=== PATIENT | male | born 1940 | race African-American/Black ===

== ENCOUNTER 2022-06-10 15:00 | Emergency (ER) | payer MEDICARE, OTHER ==
[~2022-06-10] VITALS: Ht 177.8 cm; Wt 68.0 kg
[2022-06-10 15:13] VITALS: BP 173/91
[2022-06-10] MEDS ORDERED: NACL 0.9% 2,000 ML IV ONE (15:20)
[2022-06-10] MEDS ORDERED: ACETAMINOPHEN 650 MG SUPP RC ONE (15:30)
[2022-06-10] MEDS ORDERED: PIPERACILLIN/TAZOBACTAM 3.375 GM in DEXTROSE 5% 50 ML IV ONE (15:30)
[2022-06-10] MEDS ORDERED: VANCOMYCIN 1,000 MG in DEXTROSE 5% 250 ML IV ONE (15:30)
--- NOTE | 2022-06-10 15:45 | NUR ---
# 16 FR Munoz catheter with 10 ml utilizing sterile technique. Immediate return of 200 ml CLEAR STRAW COLORED urine noted. Bedside drainage bag placed below level of bladder. Urine sample collected and sent to lab. Pt tolerated procedure WELL.
[2022-06-10 15:46] LABS: BASOPHILS % (AUTO) 0.1 % (0.0-2.0); EOSINOPHILS % (AUTO) 0.4 % (0.0-4.0); HEMATOCRIT 34.6 % (36-52); HEMOGLOBIN 11.8 g/dL (12.0-18.0); LYMPHOCYTES # (AUTO) 0.5 K/uL (2.0-11.5); LYMPHOCYTES % (AUTO) 4.2 % (20.5-51.1); MEAN CORPUSCULAR HEMOGLOBIN 33 pg (27-31); MEAN CORPUSCULAR HGB CONC 34 g/dL (33-37); MEAN CORPUSCULAR VOLUME 94.9 fL (80-94); MONOCYTES # (AUTO) 0.5 K/uL (0.8-1.0); MONOCYTES % (AUTO) 4.6 % (1.7-9.3); NEUTROPHILS # (AUTO) 10.1 K/uL (1.8-7.7); NEUTROPHILS % (AUTO) 90.7 % (42.2-75.2); PLATELET COUNT (AUTO) 231 K/uL (140-450); RED BLOOD CELL COUNT(AUTO) 3.64 MIL/uL (4.20-6.10); RED CELL DISTRIBUTION WIDTH 14.2 % (11.6-13.7); WHITE BLOOD COUNT (AUTO) 11.1 K/uL (4.8-10.8)
[2022-06-10] MEDS ORDERED: PIPERACILLIN/TAZOBACTAM 3.375 GM VIAL IV ONE (15:57)
[2022-06-10] MEDS ORDERED: VANCOMYCIN 1,000 MG VIAL ONE (15:58)
[2022-06-10 16:12] LABS: LIPASE 90 U/L (73-393)
[2022-06-10 16:32] LABS: ASPARTATE AMINOTRANSFERASE 25 U/L (15-37); CREATININE 0.8 mg/dL (0.6-1.3); GLUCOSE 156 mg/dL (74-106); TOTAL BILIRUBIN 0.3 mg/dL (0.0-1.0); UREA NITROGEN, BLOOD 10 mg/dL (7-18)
--- NOTE | 2022-06-10 16:37 | NUR ---
ROBERT FROM HOME C/O ALOC, PER PT NORMALLY A/OX4, PT NOW A/OX1 TO NAME, PT ON BELLE CATHETER, NOTED SEDIMENTS ON THE ENTIRETY OF THE CATHETER, PT WARM TO TOUCH, VERBALLY RESPONSIVE NKA PMH: DM, HTN
[2022-06-10 16:58] LABS: ANION GAP 11.2 (8-16); CHLORIDE 91 mmol/L (98-107); POTASSIUM 4.2 mmol/L (3.5-5.1); SODIUM SERUM 125 mmol/L (136-145)
[2022-06-10 17:58] LABS: APPEARANCE,URINE CLEAR (CLEAR); BILIRUBIN,URINE NEGATIVE (NEGATIVE); BLOOD, URINE 3+ (NEGATIVE); COLOR,URINE YELLOW (YELLOW); LEUKOCYTE ESTERASE ,URINE 2+ (NEGATIVE); NITRITE, URINE NEGATIVE (NEGATIVE); UGLUCOSE TRACE (NEGATIVE)
[2022-06-10 18:12] LABS: BARBITURATE, URINE NEGATIVE ng/ml (NEG <=200); BENZODIAZEPINE, URINE NEGATIVE ng/mL (NEG <=200); CANNABINOID, URINE NEGATIVE ng/mL (NEG <=50); COCAINE, URINE NEGATIVE ng/mL (NEG <=300); OPIATE, URINE POSITIVE ng/mL (NEG <=2000); PHENCYCLIDINE SCREEN,URINE NEGATIVE ng/mL (NEG <=25)
[2022-06-10 18:43] LABS: RBC,URINE 20-50 /HPF (0-5); TRICHOMONAS,URINE None Seen /HPF (None Seen); WBC,URINE 16-25 (MOD) /HPF (0-5); YEAST,URINE None Seen /HPF (None Seen)
--- NOTE | 2022-06-10 18:46 | NUR ---
SPOKE TO JESSE ABOUT TRANSFER TO [facility] AND PT CONDITION
[2022-06-10] MEDS ORDERED: ACET-9525 PO (18:50)
[2022-06-10] MEDS ORDERED: GABA-636 PO (18:50)
[2022-06-10] MEDS ORDERED: ONDA4TAB12 PO (18:50)
[2022-06-10] MEDS ORDERED: LISI10TA30 PO (18:50)
[2022-06-10] MEDS ORDERED: FINA5TAB5 PO (18:50)
[2022-06-10] MEDS ORDERED: LEVO0.0712 PO (18:50)
[2022-06-10] MEDS ORDERED: SIMV-30 PO (18:50)
[2022-06-10] MEDS ORDERED: TRIF10TA1 PO (18:50)
[2022-06-10] MEDS ORDERED: METF-352 PO (18:50)
[2022-06-10] MEDS ORDERED: FAMO20TA13 PO (18:50)
[2022-06-10] MEDS ORDERED: RAME8TAB26 PO (18:50)
--- NOTE | 2022-06-10 19:10 | NUR ---
REPORT TO TREE MATTHEW, TRANSFER OF CARE AT THIS TIME
--- NOTE | 2022-06-10 19:40 | NUR ---
Patient is A/Ox1, confused, resting comfortably in bed, chest rise and fall symmetrical, no s/s of distress. Addendum: 06/11/22 at 0213 by [id number] Patient is A/Ox1, confused, resting comfortably in bed, chest rise and fall symmetrical, no s/s of distress, patient on monitor.
--- NOTE | 2022-06-10 19:50 | NUR ---
Patient turned with pillow support to left side.
--- NOTE | 2022-06-10 21:48 | NUR ---
Patient turned with pillow support to right side.
--- NOTE | 2022-06-10 21:50 | NUR ---
Patient voided 500 mL into pollard bag. Addendum: 06/11/22 at 0213 by [id number] Patient is A/Ox1, confused, resting comfortably in bed, chest rise and fall symmetrical, no s/s of distress, patient on monitor.
--- NOTE | 2022-06-10 21:51 | NUR ---
Patient is A/Ox1, confused, resting comfortably in bed, chest rise and fall symmetrical, no s/s of distress. Addendum: 06/11/22 at 0213 by [email or web address] Patient is A/Ox1, confused, resting comfortably in bed, chest rise and fall symmetrical, no s/s of distress, patient on monitor.
--- NOTE | 2022-06-10 22:30 | NUR ---
Patient is A/Ox1, confused, resting comfortably in bed, chest rise and fall symmetrical, no s/s of distress. Addendum: 06/11/22 at 0213 by [id number] Patient is A/Ox1, confused, resting comfortably in bed, chest rise and fall symmetrical, no s/s of distress, patient on monitor.
--- NOTE | 2022-06-10 22:35 | NUR ---
Patient turned with pillow support to left side.
--- NOTE | 2022-06-10 23:10 | NUR ---
Patient turned with pillow support to right side.
--- NOTE | 2022-06-10 23:11 | NUR ---
Patient is A/Ox1, confused, resting comfortably in bed, chest rise and fall symmetrical, no s/s of distress. Addendum: 06/11/22 at 0213 by [id number] Patient is A/Ox1, confused, resting comfortably in bed, chest rise and fall symmetrical, no s/s of distress, patient on monitor.
--- NOTE | 2022-06-11 00:16 | NUR ---
Patient turned with pillow support to left side.
--- NOTE | 2022-06-11 01:10 | NUR ---
Patient is A/Ox1, confused, resting comfortably in bed, chest rise and fall symmetrical, no s/s of distress. Addendum: 06/11/22 at 0213 by [id number] Patient is A/Ox1, confused, resting comfortably in bed, chest rise and fall symmetrical, no s/s of distress, patient on monitor.
--- NOTE | 2022-06-11 01:13 | NUR ---
Patient turned with pillow support to right side.
--- NOTE | 2022-06-11 02:13 | NUR ---
Patient to be transferred to [facility]. Is being transferred due to Insurance. Receiving facility has accepting physician and available space. ER physician has signed transfer form. Patient or responsible green party has agreed to transfer and signed form. Patient belongings inventoried and will be sent with patient. Copy of nursing notes, lab reports, EKG, Physicians Orders and X-rays to be sent with patient. Report called to Renea MATTHEW at receiving facility. [facility] ambulance service has been called for transfer. ETA is [id number].
--- NOTE | 2022-06-11 02:13 | NUR ---
Patient is A/Ox1, confused, resting comfortably in bed, chest rise and fall symmetrical, no s/s of distress. Addendum: 06/11/22 at 0213 by [id number] Patient is A/Ox1, confused, resting comfortably in bed, chest rise and fall symmetrical, no s/s of distress, patient on monitor.
--- NOTE | 2022-06-11 02:21 | NUR ---
[facility] Nurse Marlen MATTHEW, called at [phone], and verbally informed of patient last set of vital signs and BG. [facility] Nurse Marlen MATTHEW verbalized understanding, no further questions.
--- NOTE | 2022-06-11 02:31 | NUR ---
Patient turned with pillow support to left side.
--- NOTE | 2022-06-11 02:50 | NUR ---
Patient cleaned and changed. Dressings covering up two sacral escoriations clean and dry and in place.
--- NOTE | 2022-06-11 03:09 | NUR ---
Patient turned with pillow support to right side. 400 mL urine emptied from pollard bag. Patient, A/Ox1, confused, resting comfortably in bed, chest rise and fall symmetrical, no s/s of distress.
--- NOTE | 2022-06-11 03:50 | NUR ---
Patient is A/Ox1, confused, resting comfortably in bed, chest rise and fall symmetrical, no s/s of distress. Addendum: 06/11/22 at 0616 by [id number] Patient is A/Ox1, confused, resting comfortably in bed, chest rise and fall symmetrical, no s/s of distress, patient on monitor.
--- NOTE | 2022-06-11 04:10 | NUR ---
Patient turned with pillow support to left side.
--- NOTE | 2022-06-11 04:20 | NUR ---
Patient is A/Ox1, confused, resting comfortably in bed, chest rise and fall symmetrical, no s/s of distress. Addendum: 06/11/22 at 0616 by [id number] Patient is A/Ox1, confused, resting comfortably in bed, chest rise and fall symmetrical, no s/s of distress, patient on monitor.
--- NOTE | 2022-06-11 05:03 | NUR ---
Patient is A/Ox1, confused, resting comfortably in bed, chest rise and fall symmetrical, no s/s of distress. Addendum: 06/11/22 at 0616 by [id number] Patient is A/Ox1, confused, resting comfortably in bed, chest rise and fall symmetrical, no s/s of distress, patient on monitor.
--- NOTE | 2022-06-11 05:11 | NUR ---
Patient turned with pillow support to right side.
--- NOTE | 2022-06-11 05:59 | NUR ---
[facility] AT FACILITY FOR TRANSFER
--- NOTE | 2022-06-11 06:00 | NUR ---
Patient turned with pillow support to left side.
--- NOTE | 2022-06-11 06:03 | NUR ---
Patient is A/Ox1, confused, resting comfortably in bed, chest rise and fall symmetrical, no s/s of distress. Addendum: 06/11/22 at 0616 by [email or web address] Patient is A/Ox1, confused, resting comfortably in bed, chest rise and fall symmetrical, no s/s of distress, patient on monitor.
[2022-06-11 06:06] VITALS: BP 156/78
--- NOTE | 2022-06-11 06:18 | NUR ---
Patient is A/Ox1, confused, chest rise and fall symmetrical, no c/o pain or s/s of distress, IV flushed and patent, patient on monitor. [facility] ambulance service has arrived for transfer of patient. [facility] Ambulance staff given report, no further questions from [facility] Ambulance staff. Patient safely transferred off floor with all belongings and all transfer documents.
--- NOTE | 2022-06-11 06:27 | NUR ---
[facility] Nurse Marlen MATTHEW, called at [phone], and verbally informed that [facility] ambulance recently picked patient up and is on their way. [facility] Nurse Marlen MATTHEW, verbalized understanding, no further questions.
== END 2022-06-11 06:11 | disposition home or self-care (01) ==
LOC: MED 15:00
DX: A41.9 Sepsis, unspecified organism (principal); R41.82 Altered mental status, unspecified; E87.20 Acidosis, unspecified; N39.0 Urinary tract infection, site not specified; Z20.822 Contact with and (suspected) exposure to COVID-19; I10 Essential (primary) hypertension; E11.9 Type 2 diabetes mellitus without complications
CPT/HCPCS: 36415; 71045; 80053; 80305; 81001; 83605; 83690; 83880; 84484; 85025; 87040; 87086; 87426; 87804; 93005; 96361; 96365; 96366; 96367; 99291; J2543; J3370; J7030; Q0092

== ENCOUNTER 2022-06-23 18:22 | Emergency (ER) | payer MEDICARE, OTHER ==
[~2022-06-23] VITALS: Ht 180.3 cm; Wt 68.0 kg
[~2022-06-23 18:22] MED LIST: ACET-9525 PO; FAMO20TA13 PO; FINA5TAB5 PO; GABA-636 PO; LEVO0.0712 PO; LISI10TA30 PO; METF-352 PO; ONDA4TAB12 PO; RAME8TAB26 PO; SIMV-30 PO; TRIF10TA1 PO
[2022-06-23 18:35] VITALS: BP 151/98
[2022-06-23] MEDS ORDERED: NACL 0.9% 1,000 ML IV ONE (18:40)
--- NOTE | 2022-06-23 18:46 | NUR ---
BIBA to bed 07 and placed onto cardiac care nurse.
--- NOTE | 2022-06-23 19:02 | NUR ---
XRAY AT BEDSIDE
[2022-06-23 19:04] LABS: BASOPHILS % (AUTO) 0.7 % (0.0-2.0); EOSINOPHILS # (AUTO) 0.2 K/uL (0-0.4); EOSINOPHILS % (AUTO) 3.4 % (0.0-4.0); HEMATOCRIT 34.3 % (36-52); HEMOGLOBIN 11.5 g/dL (12.0-18.0); LYMPHOCYTES # (AUTO) 1.3 K/uL (2.0-11.5); MEAN CORPUSCULAR HEMOGLOBIN 32 pg (27-31); MEAN CORPUSCULAR HGB CONC 34 g/dL (33-37); MEAN CORPUSCULAR VOLUME 96.3 fL (80-94); MONOCYTES # (AUTO) 0.5 K/uL (0.8-1.0); MONOCYTES % (AUTO) 9.1 % (1.7-9.3); NEUTROPHILS # (AUTO) 3.3 K/uL (1.8-7.7); NEUTROPHILS % (AUTO) 62.8 % (42.2-75.2); PLATELET COUNT (AUTO) 302 K/uL (140-450); RED BLOOD CELL COUNT(AUTO) 3.56 MIL/uL (4.20-6.10); RED CELL DISTRIBUTION WIDTH 14.4 % (11.6-13.7); WHITE BLOOD COUNT (AUTO) 5.3 K/uL (4.8-10.8)
--- NOTE | 2022-06-23 19:15 | NUR ---
81 y/o M BIBA from home c/o ALOC x 1 hr. Per EMS, pt ALOC initial GCS 1-1-1 on scene found laying semi-fowlers. EMS states patient A&Ox4 during transportation / laying supine. Initial BP on scene 74/44; now stable. EMS BS 109. Denies med complaint. Munoz in place, pt non-ambulatory. VSS upon ER arrival. PMH: DM2, HTN, hypothyroidism, neuropathy, scoliosis Meds: pepcid, gabapentin, lisinopril, levothyroxine, norco NKDA
[2022-06-23 19:27] LABS: ALBUMIN 3.1 g/dL (3.4-5.0); ANION GAP 10.7 (8-16); ASPARTATE AMINOTRANSFERASE 27 U/L (15-37); CARBON DIOXIDE 30.4 mmol/L (21-32); CHLORIDE 97 mmol/L (98-107); CREATININE 0.8 mg/dL (0.6-1.3); GLUCOSE 56 mg/dL (74-106); POTASSIUM 4.1 mmol/L (3.5-5.1); SODIUM SERUM 134 mmol/L (136-145); TOTAL BILIRUBIN 0.2 mg/dL (0.0-1.0); UREA NITROGEN, BLOOD 13 mg/dL (7-18)
--- NOTE | 2022-06-23 19:30 | NUR ---
REPORT GIVEN TO RAUDEL MATTHEW. TRANSFER OF CARE AT THIS TIME
[2022-06-23] MEDS ORDERED: DEXTROSE 50% 50 ML SYR IVP ONE (21:50)
--- NOTE | 2022-06-24 03:17 | NUR ---
PB LIST COMPLETE
--- NOTE | 2022-06-24 04:04 | NUR ---
PATIENT RESTING IN BED WITH EYES CLOSED. RR EVEN AND UNLABORED. BED LOW AND LOCKED. LUCHO SIDE RAILS UP FOR SAFTEY. ALL NEEDS MET.
--- NOTE | 2022-06-24 05:38 | NUR ---
CHANGED AND REPOSITIONED PATIENT. PLACED NEW GOWN AND LINEN. PATIENT TOLERATED WELL. BELLE CATH IN PLACE. BED LOW AND LOCKED. LUCHO SIDE RAILS FOR SAFETY. ALL NEEDS MET.
--- NOTE | 2022-06-24 07:21 | NUR ---
REPORT GIVEN TO TIFF MERAZ. TRANSFER OF CARE.
--- NOTE | 2022-06-24 07:23 | NUR ---
REPORT RECEIVED FROM RAUDEL MATTHEW. ASSUMED CARE AT THIS TIME
[2022-06-24] MEDS ORDERED: amLODIPine 5 MG TAB PO ONE (07:55)
--- NOTE | 2022-06-24 07:59 | NUR ---
Patient to be transferred to [facility]. Is being transferred due to INSURANCE. Receiving facility has accepting physician and available space. ER physician has signed transfer form. Patient or responsible libertarian has agreed to transfer and signed form. Patient belongings inventoried and will be sent with patient. Copy of nursing notes, lab reports, EKG, Physicians Orders and X-rays to be sent with patient. Report called to DAJA MATTHEW at receiving facility. [facility] ambulance service has been called for transfer. ETA is [id number]. Addendum: 06/24/22 at 0831 by PHSEP PT TX BY [facility] VIA ANNA
--- NOTE | 2022-06-24 08:13 | NUR ---
Konstantin mullen in [facility] - 06/24/22 at 0818 by [facility]NE [facility] bedside
--- NOTE | 2022-06-24 08:17 | NUR ---
[facility] AT BEDSIDE FOR TRANSFER
[2022-06-24 08:31] VITALS: BP 181/111
== END 2022-06-23 18:46 | disposition short-term general hospital (02) ==
LOC: MED 18:22
DX: R55 Syncope and collapse (principal); Z20.822 Contact with and (suspected) exposure to COVID-19; E11.649 Type 2 diabetes mellitus with hypoglycemia without coma; I10 Essential (primary) hypertension; E03.9 Hypothyroidism, unspecified; Z79.4 Long term (current) use of insulin; Z79.899 Other long term (current) drug therapy
CPT/HCPCS: 36415; 70450; 71045; 80053; 83880; 84484; 85025; 87426; 93005; 96360; 99285; J7030; Q0092

== ENCOUNTER 2023-06-21 03:28 | Emergency (ER) | payer MEDICARE, OTHER ==
[~2023-06-21] VITALS: Ht 182.9 cm; Wt 99.8 kg
[2023-06-21 03:42] VITALS: BP 136/85; PULSE 83; RESP 16; TEMP 97.7; O2SAT 99
[2023-06-21 04:15] LABS: BASOPHILS % (AUTO) 0.4 % (0.0-2.0); EOSINOPHILS # (AUTO) 0.1 K/uL (0-0.4); EOSINOPHILS % (AUTO) 2.5 % (0.0-4.0); HEMATOCRIT 36.9 % (36-52); HEMOGLOBIN 12.3 g/dL (12.0-18.0); LYMPHOCYTES # (AUTO) 1.7 K/uL (2.0-11.5); LYMPHOCYTES % (AUTO) 33.8 % (20.5-51.1); MEAN CORPUSCULAR HEMOGLOBIN 32 pg (27-31); MEAN CORPUSCULAR HGB CONC 33 g/dL (33-37); MEAN CORPUSCULAR VOLUME 96.3 fL (80-94); MONOCYTES # (AUTO) 0.5 K/uL (0.8-1.0); MONOCYTES % (AUTO) 10.3 % (1.7-9.3); NEUTROPHILS # (AUTO) 2.7 K/uL (1.8-7.7); PLATELET COUNT (AUTO) 196 K/uL (140-450); RED BLOOD CELL COUNT(AUTO) 3.83 MIL/uL (4.20-6.10); RED CELL DISTRIBUTION WIDTH 13.8 % (11.6-13.7)
[2023-06-21 04:28] LABS: INR 2.84 (0.8-1.2); PROTHROMBIN TIME 28.3 secs (10.8-13.4)
[2023-06-21 04:35] LABS: ALANINE AMINOTRANSFERASE 24 U/L (12-78); ALBUMIN 3.7 g/dL (3.4-5.0); ALKALINE PHOSPHATASE 94 U/L (50-136); ANION GAP 12.5 (8-16); ASPARTATE AMINOTRANSFERASE 14 U/L (15-37); CARBON DIOXIDE 27.3 mmol/L (21-32); CHLORIDE 101 mmol/L (98-107); CREATININE 0.7 mg/dL (0.6-1.3); GLUCOSE 132 mg/dL (74-106); POTASSIUM 3.8 mmol/L (3.5-5.1); SODIUM SERUM 137 mmol/L (136-145); TOTAL BILIRUBIN 0.3 mg/dL (0.0-1.0); TOTAL PROTEIN, SERUM 7.9 g/dL (6.4-8.2); UREA NITROGEN, BLOOD 19 mg/dL (7-18)
[2023-06-21 05:02] LABS: PARTIAL THROMBOPLASTIN TIME 31.4 secs (22-35.6)
[2023-06-21] MEDS ORDERED: AZITHROMYCIN 1,000 MG in DEXTROSE 5% 500 ML IV ONE (06:00)
[2023-06-21] MEDS ORDERED: cefTRIAXone 1,000 MG VIAL ONE (06:08)
[2023-06-21] MEDS ORDERED: AZITHROMYCIN 500 MG INJ VIAL IV ONE ×2 (06:08)
[2023-06-21] MEDS ORDERED: ONDANSETRON 4 MG/2 ML VIAL IVP ONE (06:35)
[2023-06-21 07:10] LABS: LACTIC ACID 0.9 mmol/L (0.4-2.0)
[2023-06-21 13:10] VITALS: BP 117/70; PULSE 86; RESP 20; TEMP 36.39180; O2SAT 100
== END 2023-06-21 13:10 ==
LOC: MED 03:28
DX: S00.03XA Contusion of scalp, initial encounter (principal); J18.9 Pneumonia, unspecified organism; I10 Essential (primary) hypertension; E11.9 Type 2 diabetes mellitus without complications; Z79.4 Long term (current) use of insulin; Z79.899 Other long term (current) drug therapy; W18.30XA Fall on same level, unspecified, initial encounter; Y93.89 Activity, other specified; Y92.89 Other specified places as the place of occurrence of the external cause; Y99.8 Other external cause status
CPT/HCPCS: 36415; 70450; 71045; 71260; 72125; 74177; 80053; 83605; 85025; 85610; 85730; 87040; 93005; 96365; 96366; 96367; 96375; 99285; J0456; J0696; J2405; Q0092; Q9967

== ENCOUNTER 2023-12-22 05:55 | Emergency (ER) | payer MEDICARE, OTHER ==
[~2023-12-22] VITALS: Ht 182.9 cm; Wt 59.0 kg
[2023-12-22 06:02] VITALS: BP 119/67; PULSE 106; RESP 20; TEMP 97.4; O2SAT 94
[2023-12-22] MEDS ORDERED: PIPERACILLIN/TAZOBACTAM 3.375 GM VIAL IV ONE (06:47)
[2023-12-22] MEDS: NACL 0.9% 1,000 ML IV ONE ×2 (07:10→15:09)
[2023-12-22] MEDS: PIPERACILLIN/TAZOBACTAM 3.375 GM in DEXTROSE 5% 50 ML IV ONE (07:10)
[2023-12-22 07:46] LABS: BASOPHILS % (AUTO) 0.3 % (0.0-2.0); EOSINOPHILS % (AUTO) 0.1 % (0.0-4.0); HEMATOCRIT 30.1 % (36-52); HEMOGLOBIN 10.1 g/dL (12.0-18.0); LYMPHOCYTES # (AUTO) 0.9 K/uL (2.0-11.5); LYMPHOCYTES % (AUTO) 7.3 % (20.5-51.1); MEAN CORPUSCULAR HEMOGLOBIN 32 pg (27-31); MEAN CORPUSCULAR HGB CONC 34 g/dL (33-37); MEAN CORPUSCULAR VOLUME 94.4 fL (80-94); MONOCYTES # (AUTO) 1.2 K/uL (0.8-1.0); MONOCYTES % (AUTO) 10.1 % (1.7-9.3); NEUTROPHILS # (AUTO) 10.1 K/uL (1.8-7.7); NEUTROPHILS % (AUTO) 82.2 % (42.2-75.2); PLATELET COUNT (AUTO) 299 K/uL (140-450); RED BLOOD CELL COUNT(AUTO) 3.19 MIL/uL (4.20-6.10); RED CELL DISTRIBUTION WIDTH 14.7 % (11.6-13.7); WHITE BLOOD COUNT (AUTO) 12.2 K/uL (4.8-10.8)
[2023-12-22 08:04] LABS: ANION GAP 13.6 (8-16); CALCIUM 9.1 mg/dL (8.5-10.1); CARBON DIOXIDE 23.2 mmol/L (21-32); CHLORIDE 99 mmol/L (98-107); CREATININE 2.6 mg/dL (0.6-1.3); GLUCOSE 251 mg/dL (74-106); POTASSIUM 4.8 mmol/L (3.5-5.1); SODIUM SERUM 131 mmol/L (136-145); UREA NITROGEN, BLOOD 45 mg/dL (7-18)
[2023-12-22 08:06] LABS: APPEARANCE,URINE CLOUDY (CLEAR); BILIRUBIN,URINE NEGATIVE (NEGATIVE); BLOOD, URINE 3+ (NEGATIVE); COLOR,URINE AMBER (YELLOW); PH,URINE 8.5 (5.0-9.0); PROTEIN,URINE 3+ (NEGATIVE); UGLUCOSE NEGATIVE (NEGATIVE)
[2023-12-22 08:07] LABS: BACTERIA,URINE 2+ /HPF (None Seen); LEUKOCYTE ESTERASE ,URINE 3+ (NEGATIVE); NITRITE, URINE POSITIVE (NEGATIVE); RBC,URINE >20 (MANY) /HPF (0-5); SQUAMOUS EPITHELIAL CELL,UR 0-3 (FEW) /LPF (0-3 (FEW)); UROBILINOGEN,URINE 0.2 EU/dL (0.2 - 1); WBC,URINE >25 (MANY) /HPF (0-5)
[2023-12-22] MEDS: NACL 0.9% 1,000 ML IV SCH (08:10)
[2023-12-22 08:13] LABS: LACTIC ACID 2.3 mmol/L (0.4-2.0)
[2023-12-22 08:18] LABS: ALANINE AMINOTRANSFERASE 68 U/L (12-78); ALBUMIN 2.3 g/dL (3.4-5.0); ALKALINE PHOSPHATASE 86 U/L (50-136); ASPARTATE AMINOTRANSFERASE 28 U/L (15-37); BILIRUBIN,DIRECT 0.1 mg/dL (0.0-0.3); CREATINE KINASE, TOTAL 114 U/L (39-308); TOTAL BILIRUBIN 0.3 mg/dL (0.0-1.0); TOTAL PROTEIN, SERUM 7.3 g/dL (6.4-8.2)
[2023-12-22 08:44] LABS: INR 1.07 (0.8-1.2); PARTIAL THROMBOPLASTIN TIME 22.1 secs (22-35.6); PROTHROMBIN TIME 11.2 secs (10.8-13.4)
[2023-12-22 08:51] LABS: FREE T4 (FREE THYROXINE) 1.25 ng/dL (0.76-1.46); THYROID STIMULATING HORMONE 5.48 uIU/mL (0.34-3.74)
[2023-12-22 15:53] VITALS: BP 117/61; PULSE 96; RESP 19; TEMP 97.4; O2SAT 97
== END 2023-12-22 16:00 | disposition short-term general hospital (02) ==
LOC: MED 05:55
DX: A41.9 Sepsis, unspecified organism (principal); R65.20 Severe sepsis without septic shock; D64.9 Anemia, unspecified; G93.40 Encephalopathy, unspecified; N17.9 Acute kidney failure, unspecified; N30.01 Acute cystitis with hematuria; R41.82 Altered mental status, unspecified; E11.9 Type 2 diabetes mellitus without complications; I10 Essential (primary) hypertension; Z79.4 Long term (current) use of insulin; Z79.899 Other long term (current) drug therapy
CPT/HCPCS: 36415; 70450; 71045; 74176; 80048; 80076; 81001; 82550; 82948; 83605; 83880; 84439; 84443; 84484; 85025; 85610; 85730; 87040; 87086; 87186; 93005; 96361; 96365; 99291; 99292; J2543; J7030; Q0092